=== PATIENT | male | born 1960 ===

== ENCOUNTER 2021-11-21 21:23 | Emergency (ER) | payer OTHER ==
[~2021-11-21] VITALS: Ht 172.7 cm; Wt 74.4 kg
[2021-11-21] MEDS ORDERED: VASOTEC5 MG (21:36)
[2021-11-21] MEDS ORDERED: PLAVIX75 MG (21:36)
[2021-11-21] MEDS ORDERED: HUMALOG100 UNIT/2 (21:37)
[2021-11-21] MEDS ORDERED: NEURONTIN300 MG (21:37)
[2021-11-21] MEDS ORDERED: LIPITOR40 MG (21:37)
[2021-11-21] MEDS ORDERED: LANTUS SOL100 UNIT/1 (21:37)
[2021-11-22] MEDS ORDERED: ANTIVERT25 M2 PO (00:54)
== END 2021-11-22 01:10 | disposition home or self-care (01) ==
LOC: ER 21:23
DX: R42 Dizziness and giddiness (principal); Z88.8 Allergy status to other drugs, medicaments and biological substances; Z88.6 Allergy status to analgesic agent; E11.9 Type 2 diabetes mellitus without complications; Z79.4 Long term (current) use of insulin; M19.90 Unspecified osteoarthritis, unspecified site; I10 Essential (primary) hypertension; I83.90 Asymptomatic varicose veins of unspecified lower extremity